=== PATIENT | female | born 1980 | race Caucasian/White ===

== ENCOUNTER 2023-07-06 12:58 | Emergency (ER) | payer SELFPAY ==
[2023-07-06 13:06] VITALS: RESP 20; BMI 34.8
[2023-07-06] MEDS ORDERED: ALBUTEROL SO4 2.5/IPRATROPIUM 0.5 INH SOL 3 ML VIAL.NEB. NEB ONE (14:55)
[2023-07-06] MEDS ORDERED: methylPREDNISolone NA SUCC 125 MG/2 ML VIAL ONE (14:55)
[2023-07-06] MEDS: methylPREDNISolone NA SUCC 125 MG/2 ML VIAL IVPB ONE (15:16)
[2023-07-06] MEDS: ALBUTEROL SO4 2.5/IPRATROPIUM 0.5 INH SOL 3 ML VIAL.NEB. NEB SCH (15:16)
[2023-07-06 15:34] LABS: EOS % 1.9 % (0-4.5); HEMATOCRIT 35.5 % (32.4-45.2); HEMOGLOBIN 11.9 GM/dL (10.7-15.3); LYMPH % 22.3 % (8-40); MCH 28.4 pg (25.7-33.7); MCHC 33.6 g/dl (32.0-36.0); MEAN CELL VOLUME 84.6 fl (80-96); MEAN PLT VOLUME 7.9 fl (7.5-11.1); MONO % 5.6 % (3.8-10.2); NEUT % 69.2 % (42.8-82.8); PLATELET COUNT 326 10^3/uL (134-434); RDW 16.1 % (11.6-15.6)
[2023-07-06 15:53] LABS: PROTHROMBIN TIME (PATIENT) 11.6 SEC (9.7-13.0)
[2023-07-06 15:55] LABS: ACTIVATED PTT 31.4 SECONDS (25.2-36.5)
[2023-07-06 16:16] LABS: POTASSIUM 3.8 mmol/L (3.5-5.1)
[2023-07-06 16:19] LABS: ALBUMIN 3.3 g/dl (3.4-5.0); BLOOD UREA NITROGEN 13.8 mg/dL (7-18); CALCIUM 8.8 mg/dL (8.5-10.1)
[2023-07-06 16:22] LABS: CREATININE 0.7 mg/dL (0.55-1.3)
[2023-07-06 16:24] LABS: BILIRUBIN,TOTAL 0.1 mg/dL (0.2-1); TOT PROT 7.6 g/dl (6.4-8.2)
[2023-07-06] MEDS ORDERED: BENZONATATE 200 MG CAPSULE PO ONE (16:31)
[2023-07-06 16:49] VITALS: BP 114/71; PULSE 99; TEMP 98.4
[2023-07-06] MEDS ORDERED: ACETAMINOPHEN W/ CODEINE LIQ 5 ML CUP ONE (17:21)
[2023-07-06] MEDS: ACETAMINOPHEN W/ CODEINE LIQ 5 ML CUP PO ONE (17:26)
[2023-07-06] MEDS: CODEINE SO4 30 MG TABLET PO ONE (17:41)
== END 2023-07-06 17:54 | disposition home or self-care (01) ==
LOC: JER 12:58
PROC: 3E033GC Introduction of Other Therapeutic Substance into Peripheral Vein, Percutaneous Approach (ICD-10-PCS; principal; 2023-07-06)
PROC: 3E0F7GC Introduction of Other Therapeutic Substance into Respiratory Tract, Via Natural or Artificial Opening (ICD-10-PCS; 2023-07-06)
DX: R05.9 Cough, unspecified (principal); R07.9 Chest pain, unspecified; J06.9 Acute upper respiratory infection, unspecified; Z20.822 Contact with and (suspected) exposure to COVID-19
CPT/HCPCS: 0241U-QW; 36415; 71046-TC-FY; 80053; 84484; 85025; 85610; 85730; 93005; 93010; 99285-25